=== PATIENT | female | born 1955 | race Caucasian/White ===

== ENCOUNTER 2023-06-12 10:28 | Outpatient (AMB) | payer MEDICARE, SELFPAY ==
--- NOTE | 2023-06-12 10:46 | A.SPINEOV_ITS ---
Intake Intake Visit Reasons: degeneration and petrussion of the disc Intake Note: Ms. Donald is here today c/o back pain. MRI done @ [facility]/brought disc . 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 She had no loss of motor function at that time. She ended up in her PCP office and then subsequently at [facility] at the [facility]. She underwent a series of MRIs of her spinal axis and this showed possible hyperintensity behind the C4-5 disc space consistent possibly with myelitis amongst other things. She was given steroids for 3 days per protocol and ultimately discharged in more less the same condition that she presented to the hospital. Over time the loss of sensation in the legs turned to a tingling and numbness feeling but never went away. In fact, over the subsequent year to year and a half since the event, she has only continued to get worse. She takes baclofen and gabapentin to help with the symptoms. She is followed by a neurologist at [facility] named Aron Askew. She tells me that no further testing or workup has been done despite the progression of her symptoms. More recently in March she has had worsening of the symptoms in the sense that her left leg is starting to give out on her and she is having more balance issues. She does not have any loss of bowel or bladder sensation, no incontinence of stool or urine. She has an MRI done at [facility] showing cervical stenosis at C4-5 and C5-6 and came to see us for evaluation of possible surgery. PMH: She is otherwise healthy, history of osteoporosis, transverse myelitis, SVT which she gets periodically to resolved on her own and bronchitis. She has a previous history of a sensorineural hearing loss which started acutely. Social hx: She does not smoke or drink any significant alcohol Medications: Atorvastatin, alendronate, baby aspirin, calcium, Colace, Claritin, baclofen, gabapentin and vitamins Allergies: None Physical exam: No acute distress, she is able to stand up out of a chair and walked down the hallway for me. She is somewhat ataxic and has diminished stride length on the left leg. Motor testing reveals a significant loss of the left iliopsoas strength which I would rate as 2 to 3/5 and the left quadriceps is 4/5. Distal lower extremity strength on the left side is normal. The right leg strength is normal. Upper extremity strength reveals she may have some mild hand weakness but otherwise no deficits. She does have hyperreflexia and positive Manuel sign and clonus bilaterally. She has some subtle loss of sensation light touch in both of her lower extremities going up to about the upper thigh level. There is no increased tone of the upper or lower extr emities. Cranial nerve testing reveals no deficits. Imaging review: She has a cervical MRI a brain MRI and a thoracic MRI done at [facility] in August 2022. I compared these to cervical brain and thoracic done at [facility] in January of 2022 when she had her original diagnosis of myelitis. Essentially both sets of imaging look exactly the same. There is a subtle hyperintensity behind the C4-5 disc space on both images. Although it is not reported on the imaging done at [facility] I can see it is exactly in the same location that they diagnosed as myelitis and the [facility] i maging. There was no edema on the spinal cord, no significant swelling of the spinal cord at the time of the images done at [facility] in January of 2022. There was also no enhancement seen at that time either. Her most up-to-date imaging also does not show any evidence of edema in the spinal cord either. There is moderate stenosis at C4-5 and C5-6 consistent with arthritic changes. The thoracic studies at both locations are unremarkable. She has an old left cerebellar stroke seen on both brain imaging sets. Impression: This is a 67-year-old female presents to the office for self- referral for evaluation of a set of neurological symptoms including initially sensory loss but now diffuse tingling and numbness of the legs going up to about the L1 spinal level which started acutely about a year and a half ago. Since March the symptoms have continued to progress and now she is developing weakness specifically of the proximal left leg as well as worsening of the tingling and numbness. I reviewed all of her imaging and her story. I am not convinced that the original diagnosis of myelitis is her problem. Typically myelitis would run its course and there would be a level of improvement to which the patient would attain but shouldn't continue to get worse over time. Her imaging from August of this year looks exactly like it did in January of 2022 when the symptoms started. The small subtle T2 hyperintensity seen at that time was not associated with any contrast enhancement or edema which would be more typical of myelitis. She has had a noticeable change in March of this year but no subsequent imaging to see if anything has changed in the spinal cord. She is treating the symptoms at this time with gabapentin and baclofen I am concerned she does not have a true diagnosis of why she is having these symptoms. I am going to repeat the imaging of the cervical thoracic and the lumbar spine to be sure we are not missing something new. Her symptoms do not classically present like central canal stenosis of the cervical spine which is the original reason she came to see us. I am wondering if she does not have a autoimmune polyneuropathy similar to what caused her hearing loss a few years ago. If her imaging is negative I will send her for an EMG to rule that out. Thank you for allowing us to care for your patient. The total time spent with this visit with this patient was 65 minutes reviewing history, physical exam, cervical, thoracic and brain imaging review, and implementation of treatment plan or further diagnostic testing Aron Vasquez MD,PhD [facility] Orders: Orders MR cervical spine wo con Today G04.91 - Myelitis, unspecified MR lumbar spine wo con Today M54.16 - Radiculopathy, lumbar region MR thoracic spine wo con Today G04.91 - Myelitis, unspecified Coding Level of Care Code New Pt Level 5 (26861) Diagnoses Myelitis G04.91
== END 2023-06-12 11:37 | disposition home or self-care (01) ==
PROVIDERS: Visit Provider Physician Assistant
DX: G04.91 Myelitis, unspecified (principal)
CPT/HCPCS: 99205

== ENCOUNTER → 2023-06-12 10:28 | Outpatient (BNVA) | payer MEDICARE, SELFPAY | PROVIDERS: Visit Provider Physician Assistant | DX: G04.91 Myelitis, unspecified (principal) | CPT/HCPCS: 99202 ==